=== PATIENT | female | born 2000 | race Caucasian/White ===

== ENCOUNTER 2018-10-31 21:44 | Emergency (ER) | payer SELFPAY ==
[2018-10-31] MEDS ORDERED: Erythromycin Base 0.5% Ophth Oint 3.5 gm Tube ONE (23:30)
== END 2018-11-01 | disposition home or self-care (01) ==
LOC: MADERS 21:44
DX: B30.9 Viral conjunctivitis, unspecified (principal); J06.9 Acute upper respiratory infection, unspecified
CPT/HCPCS: 87070; 87077; 87205; 99283